=== PATIENT | male | born 1970 | race African-American/Black ===

== ENCOUNTER 2023-01-31 14:27 | Emergency (ER) | payer OTHER ==
[2023-01-31 14:42] VITALS: BP 146/76; PULSE 82; RESP 16; TEMP 98.2; BMI 29.0
[2023-01-31] MEDS ORDERED: ACETAMINOPHEN 325 MG TABLET (FP) PO ONE (15:34)
[2023-01-31] MEDS ORDERED: LIDOCAINE 5% TOPICAL PATCH TP ONE (15:35)
[2023-01-31] MEDS ORDERED: IBUPROFEN 400 MG TABLET (FP) PO ONE ×2 (15:35→15:46)
[2023-01-31] MEDS ORDERED: LIDOCAINE 5% TOPICAL PATCH ONE (15:46)
[2023-01-31] MEDS ORDERED: ACETAMINOPHEN 325 MG TABLET (FP) ONE (15:46)
[2023-01-31] MEDS ORDERED: LIDOCAINE PATCH REMOVAL MC SCH (22:00)
== END 2023-01-31 16:54 | disposition home or self-care (01) ==
LOC: JERFT 14:27
DX: M54.59 Other low back pain (principal)
CPT/HCPCS: 99283-25